=== PATIENT | male | born 1930 | race Caucasian/White ===

== ENCOUNTER → 2017-03-24 | Outpatient (CLI) | payer MEDICARE, BC ==
[~2017-03-24] MED LIST: AMBIEN PO; ARISTOCORT A 0.15 GM TOP; CARDURA PO; CIPRO PO; COLACE PO; FLOMAX0.4 MG PO; KCL PO; LASIX PO; LEVAQUIN PO; LISINOPRIL PO; MED FOR PROSTATE; NEURONTIN PO; PRILOSEC PO; ULTRAM PO
--- NOTE | ~2017-03-24 | US77 ---
[facility] A Service of [place] [facility] RADIOLOGY TEXT RESULTS PATIENT: CATRACHITA HERCULES SR LOCATION: [facility] : 34 UNIT #: [id number] AGE: [address]: Mack Guerrero MD SEX: M ORDER DR: [id number] [facility] [address] [place], [place] [address] [id number] O MR#: [id number] Acc #: [id number] NAME: CATRACHITA HERCULES SR : 1930 SEX: M STUDY DATE/TIME: 03/24/2017 16:06 UNIT: [facility] ROOM: STUDY DESCRIPTION: US Kidney Bilateral Complete Attending Physician: Mack Guerrero M.D. Referring Physician: Mack Guerrero M.D. Ordering Physician: Mack Guerrero M.D. Primary Care Physician: Tutu Vu M.D. MEDICAL IMAGING REPORT This report is preliminary unless electronic signature is present EXAM Renal ultrasound bilateral, 03/24/2017 HISTORY Left flank pain for 3 weeks. No known injury. FINDINGS The right kidney measures 10 cm while the left kidney measured 11.3 cm in longitudinal dimensions. There is no evidence of hydronephrosis or nephrolithiasis. There is a 1 cm cyst on the right kidney. No solid mass lesions are identified. There is normal renal cortical echogenicity. Images of the bladder are normal. IMPRESSION 1. Right renal cyst. Otherwise negative renal ultrasound. 2. Images of the bladder are normal. Dictated by... Marcus Rangel M.D. THIS IS AN ELECTRONICALLY VERIFIED REPORT Marcus Rangel M.D. at 03/25/2017 5:31 PM KRT/to TD: 03/25/2017 17:13 JOB #: [id number] MEDICAL IMAGING REPORT Page 1 of 1 COPY
== END | disposition home or self-care (01) ==
LOC: CGUS 15:41
DX: R10.9 Unspecified abdominal pain (principal); N28.1 Cyst of kidney, acquired
CPT/HCPCS: 76770